=== PATIENT | female | born 1980 | race American Indian/Alaskan Native ===

== ENCOUNTER 2017-05-29 17:49 | Emergency (ER) | payer MEDICAID ==
[2017-05-29] MEDS ORDERED: GI Cocktail Oral Solution 30 ML PO ONE (19:58)
[2017-05-29 20:14] LABS: SODIUM,NA 141 mmol/L (135-145)
--- NOTE | 2017-05-29 20:14 | EDM.PDOC ---
ED HPI GENERAL MEDICAL PROBLEM - General Chief Complaint: Chest Pain Stated Complaint: CHEST PAINS, [id number] Left Lower Chest Pain Score (Numeric/FACES): 5 - Related Data Allergies Allergy/AdvReac Type Severity Reaction Status Date / Time No Known Allergies Allergy Verified 05/29/17 20:04 Home Meds: Home Meds . [No Known Home Meds] 05/29/17 [History] Past Medical History Gastrointestinal History: Reports: Gastritis, PUD Social & Family History - Tobacco Use Smoking Status *Q: Current Every Day Smoker Years of Tobacco use: 15 Packs/Tins Daily: 0.5 - Caffeine Use Caffeine Use: Reports: Coffee, Soda - Recreational Drug Use Recreational Drug Use: No Course - Vital Signs Last Recorded V/S: Last Vital Signs Temp 98.3 F 05/29/17 19:50 Pulse 65 05/29/17 19:50 Resp 22 H 05/29/17 19:50 BP 143/74 H 05/29/17 19:50 Pulse Ox 100 05/29/17 19:50 - Orders/Labs/Meds Orders: Active Orders 24 hr Category Date Time Status EKG 12 Lead [EKG Documentation Completion] [RC] STAT Care 05/29/17 18:56 Active CBC WITH AUTO DIFF [HEME] Stat Lab 05/29/17 19:25 Received Labs: Laboratory Tests 05/29/17 05/29/17 05/29/17 Range/Units 18:59 18:59 18:59 Sodium (135-145) mmol/L Potassium (3.6-5.0) mmol/L Chloride (101-111) mmol/L Carbon Dioxide (21.0-31.0) mmol/L Anion Gap BUN (7-18) mg/dL Creatinine (0.6-1.3) mg/dL Est Cr Clr Drug Dosing mL/min Estimated GFR (MDRD) BUN/Creatinine Ratio Glucose (74-105) mg/dL Calcium (8.4-10.2) mg/dl Total Bilirubin (0.2-1.0) mg/dL AST (10-42) IU/L ALT (10-60) IU/L Alkaline Phosphatase (42-121) IU/L Total Protein (6.7-8.2) g/dl Albumin (3.2-5.5) g/dl Globulin Albumin/Globulin Ratio Amylase (28-100) U/L Lipase (22-51) U/L Urine Color Red (YELLOW) Urine Appearance Turbid (CLEAR) Urine pH 7.0 (5.0-9.0) Ur Specific [place] 1.020 (1.005-1.030) Urine Protein 30 H (NEGATIVE) Urine Glucose (UA) Negative (NEGATIVE) Urine Ketones Negative (NEGATIVE) mg/dL Urine Occult Blood Large H (NEGATIVE) Urine Nitrite Negative (NEGATIVE) Urine Bilirubin Negative (NEGATIVE) Urine Urobilinogen 1.0 (0.2-1.0) mg/dL Ur Leukocyte Esterase Small H (NEGATIVE) Urine RBC >100 H /HPF Urine WBC 5-10 H (0-5/HPF) /HPF Ur Epithelial Cells Few /HPF Urine Bacteria Rare (0-FEW/HPF) /HPF Urine Mucus Rare /LPF Urine HCG, Qual Negative Urine Opiates Screen Negative (NEGATIVE) Ur Oxycodone Screen Negative (NEGATIVE) Urine Methadone Screen Negative (NEGATIVE) Ur Barbiturates Screen Negative (NEGATIVE) U Tricyclic Antidepress Negative (NEGATIVE) Ur Phencyclidine Scrn Negative (NEGATIVE) Ur Amphetamine Screen Negative (NEGATIVE) U Methamphetamines Scrn Negative (NEGATIVE) Urine MDMA Screen Negative (NEGATIVE) U Benzodiazepines Scrn Negative (NEGATIVE) Urine Cocaine Screen Negative (NEGATIVE) U Marijuana (THC) Screen Negative (NEGATIVE) Ethyl Alcohol mg/dL 05/29/17 Range/Units 19:25 Sodium 141 (135-145) mmol/L Potassium 4.3 (3.6-5.0) mmol/L Chloride 104 (101-111) mmol/L Carbon Dioxide 27.0 (21.0-31.0) mmol/L Anion Gap 14.3 BUN 12 (7-18) mg/dL Creatinine 0.7 (0.6-1.3) mg/dL Est Cr Clr Drug Dosing 92.79 mL/min Estimated GFR (MDRD) > 60 BUN/Creatinine Ratio 17.14 Glucose 99 (74-105) mg/dL Calcium 8.9 (8.4-10.2) mg/dl Total Bilirubin 0.8 (0.2-1.0) mg/dL AST 418 H (10-42) IU/L ALT 541 H (10-60) IU/L Alkaline Phosphatase 115 (42-121) IU/L Total Protein 6.6 L (6.7-8.2) g/dl Albumin 3.4 (3.2-5.5) g/dl Globulin 3.2 Albumin/Globulin Ratio 1.06 Amylase 68 (28-100) U/L Lipase 58 H (22-51) U/L Urine Color (YELLOW) Urine Appearance (CLEAR) Urine pH (5.0-9.0) Ur Specific [place] (1.005-1.030) Urine Protein (NEGATIVE) Urine Glucose (UA) (NEGATIVE) Urine Ketones (NEGATIVE) mg/dL Urine Occult Blood (NEGATIVE) Urine Nitrite (NEGATIVE) Urine Bilirubin (NEGATIVE) Urine Urobilinogen (0.2-1.0) mg/dL Ur Leukocyte Esterase (NEGATIVE) Urine RBC /HPF Urine WBC (0-5/HPF) /HPF Ur Epithelial Cells /HPF Urine Bacteria (0-FEW/HPF) /HPF Urine Mucus /LPF Urine HCG, Qual Urine Opiates Screen (NEGATIVE) Ur Oxycodone Screen (NEGATIVE) Urine Methadone Screen (NEGATIVE) Ur Barbiturates Screen (NEGATIVE) U Tricyclic Antidepress (NEGATIVE) Ur Phencyclidine Scrn (NEGATIVE) Ur Amphetamine Screen (NEGATIVE) U Methamphetamines Scrn (NEGATIVE) Urine MDMA Screen (NEGATIVE) U Benzodiazepines Scrn (NEGATIVE) Urine Cocaine Screen (NEGATIVE) U Marijuana (THC) Screen (NEGATIVE) Ethyl Alcohol < 5 mg/dL Meds: Medications Discontinued Medications Generic Name Dose Route Start Last Admin Trade Name Baronq PRN Reason Stop Dose Admin Al Hydroxide/Mg Hydroxide 30 ml 05/29/17 19:58 05/29/17 20:04 Gi Cocktail PO 05/29/17 19:59 30 ml ONETIME ONE Administration Famotidine Confirm 05/29/17 20:17 05/29/17 20:25 Pepcid Administered 05/29/17 20:18 Not Given Dose 20 mg .ROUTE .STK-MED ONE Famotidine 20 mg 05/29/17 20:23 05/29/17 20:26 Pepcid PO 05/29/17 20:24 20 mg ONETIME ONE Administration Departure - Departure Time of Disposition: 20:12 Disposition: Home, Self-Care 01 Condition: Good Clinical Impression: Epigastric pain - Discharge Information Instructions: Peptic Ulcer, [id number] Forms: ED Department Discharge Additional Instructions: bland diet limit caffeine and soda pepcid 20mg one daily' #10 no tylenol use follow up in clinic next week - My Orders Last 24 Hours: My Active Orders 05/29/17 19:25 CBC WITH AUTO DIFF [HEME] Stat - Assessment/Plan Last 24 Hours: My Active Orders 05/29/17 19:25 CBC WITH AUTO DIFF [HEME] Stat
[2017-05-29 20:15] LABS: CHLORIDE,CL 104 mmol/L (101-111)
[2017-05-29] MEDS ORDERED: Famotidine 20 MG Tab ONE (20:17)
[2017-05-29] MEDS ORDERED: Famotidine 20 MG Tab PO ONE (20:23)
--- NOTE | 2017-05-29 20:54 | EDM.PDOC ---
ED HPI GENERAL MEDICAL PROBLEM - General Chief Complaint: Chest Pain Stated Complaint: CHEST PAINS, [id number] Time Seen by Provider: 05/29/17 19:00 Source of Information: Reports: Patient History Limitations: Reports: No Limitations - History of Present Illness INITIAL COMMENTS - FREE TEXT/NARRATIVE: C/o of "chest pain" pointing epigastric LUQ pain since this am, similar to previous ulcer with radiation between shoulder blades.. Notes treated in [facility] approximately a year ago. Currently in CRU and no availability for prn medications. Admits prior meth and alcohol use hx. States now clean for 35 days. No prior episodes of pancreatitis. Has not tried anything for discomfort. Left Lower Chest Pain Score (Numeric/FACES): 5 - Related Data Allergies Allergy/AdvReac Type Severity Reaction Status Date / Time No Known Allergies Allergy Verified 05/29/17 20:04 Home Meds: Home Meds . [No Known Home Meds] 05/29/17 [History] Past Medical History Gastrointestinal History: Reports: Gastritis, PUD Social & Family History - Tobacco Use Smoking Status *Q: Current Every Day Smoker Years of Tobacco use: 15 Packs/Tins Daily: 0.5 - Caffeine Use Caffeine Use: Reports: Coffee, Soda - Recreational Drug Use Recreational Drug Use: No ED ROS GENERAL - Review of Systems Review Of Systems: See Below Constitutional: Reports: Decreased Appetite (today) HEENT: Reports: No Symptoms Respiratory: Reports: No Symptoms Cardiovascular: Reports: No Symptoms GI/Abdominal: Reports: Abdominal Pain, Decreased Appetite. Denies: Distension, Nausea, Vomiting : Reports: No Symptoms Musculoskeletal: Reports: No Symptoms Skin: Reports: No Symptoms Neurological: Reports: No Symptoms ED EXAM, GI/ABD - Physical Exam Exam: See Below Exam Limited By: No Limitations General Appearance: Alert, No Apparent Distress Ears: Normal External Exam Nose: Normal Inspection Throat/Mouth: Normal Inspection Head: Atraumatic, Normocephalic Neck: Normal Inspection Respiratory/Chest: No Respiratory Distress, Lungs Clear Cardiovascular: Normal Peripheral Pulses, Regular Rate, Rhythm GI/Abdominal Exam: Normal Bowel Sounds, Soft, Tender (mid epigastric light palpation, medial left upper quad with deep palpation, non tender RUQ. ). No: Distended, Guarding, Rebound Back Exam: Normal Inspection Extremities: Normal Inspection, Normal Range of Motion Neurological: Alert, Oriented, Normal Cognition Psychiatric: Normal Affect, Normal Mood Skin Exam: Warm, Dry, Intact, Normal Color, No Rash. No: Jaundice Course - Vital Signs Last Recorded V/S: Last Vital Signs Temp 98.0 F 05/29/17 20:59 Pulse 64 05/29/17 20:59 Resp 18 05/29/17 20:59 BP 160/95 H 05/29/17 20:59 Pulse Ox 98 05/29/17 20:59 - Orders/Labs/Meds Orders: Active Orders 24 hr Category Date Time Status EKG 12 Lead [EKG Documentation Completion] [RC] STAT Care 05/29/17 18:56 Active Labs: Laboratory Tests 05/29/17 05/29/17 05/29/17 Range/Units 18:59 18:59 18:59 WBC (5.0-10.0) 10^3/uL RBC (4.2-5.4) 10^6/uL Hgb (12.0-16.0) g/dL Hct (37.0-47.0) % MCV (80-100) fL MCH (27.0-34.0) pg MCHC (33.0-35.0) g/dL Plt Count (150-450) 10^3/uL Neut % (Auto) (42.2-75.2) % Lymph % (Auto) (20.5-50.1) % [place] % (Auto) (2-8) % Eos % (Auto) (1.0-3.0) % Baso % (Auto) (0.0-1.0) % Sodium (135-145) mmol/L Potassium (3.6-5.0) mmol/L Chloride (101-111) mmol/L Carbon Dioxide (21.0-31.0) mmol/L Anion Gap BUN (7-18) mg/dL Creatinine (0.6-1.3) mg/dL Est Cr Clr Drug Dosing mL/min Estimated GFR (MDRD) BUN/Creatinine Ratio Glucose (74-105) mg/dL Calcium (8.4-10.2) mg/dl Total Bilirubin (0.2-1.0) mg/dL AST (10-42) IU/L ALT (10-60) IU/L Alkaline Phosphatase (42-121) IU/L Total Protein (6.7-8.2) g/dl Albumin (3.2-5.5) g/dl Globulin Albumin/Globulin Ratio Amylase (28-100) U/L Lipase (22-51) U/L Urine Color Red (YELLOW) Urine Appearance Turbid (CLEAR) Urine pH 7.0 (5.0-9.0) Ur Specific [place] 1.020 (1.005-1.030) Urine Protein 30 H (NEGATIVE) Urine Glucose (UA) Negative (NEGATIVE) Urine Ketones Negative (NEGATIVE) mg/dL Urine Occult Blood Large H (NEGATIVE) Urine Nitrite Negative (NEGATIVE) Urine Bilirubin Negative (NEGATIVE) Urine Urobilinogen 1.0 (0.2-1.0) mg/dL Ur Leukocyte Esterase Small H (NEGATIVE) Urine RBC >100 H /HPF Urine WBC 5-10 H (0-5/HPF) /HPF Ur Epithelial Cells Few /HPF Urine Bacteria Rare (0-FEW/HPF) /HPF Urine Mucus Rare /LPF Urine HCG, Qual Negative Urine Opiates Screen Negative (NEGATIVE) Ur Oxycodone Screen Negative (NEGATIVE) Urine Methadone Screen Negative (NEGATIVE) Ur Barbiturates Screen Negative (NEGATIVE) U Tricyclic Antidepress Negative (NEGATIVE) Ur Phencyclidine Scrn Negative (NEGATIVE) Ur Amphetamine Screen Negative (NEGATIVE) U Methamphetamines Scrn Negative (NEGATIVE) Urine MDMA Screen Negative (NEGATIVE) U Benzodiazepines Scrn Negative (NEGATIVE) Urine Cocaine Screen Negative (NEGATIVE) U Marijuana (THC) Screen Negative (NEGATIVE) Ethyl Alcohol mg/dL 05/29/17 05/29/17 Range/Units 19:25 19:25 WBC 7.0 (5.0-10.0) 10^3/uL RBC 3.82 L (4.2-5.4) 10^6/uL Hgb 11.2 L (12.0-16.0) g/dL Hct 33.8 L (37.0-47.0) % MCV 88.5 (80-100) fL MCH 29.3 (27.0-34.0) pg MCHC 33.1 (33.0-35.0) g/dL Plt Count 296 (150-450) 10^3/uL Neut % (Auto) 38.3 L (42.2-75.2) % Lymph % (Auto) 38.7 (20.5-50.1) % [place] % (Auto) 12.9 H (2-8) % Eos % (Auto) 9.8 H (1.0-3.0) % Baso % (Auto) 0.3 (0.0-1.0) % Sodium 141 (135-145) mmol/L Potassium 4.3 (3.6-5.0) mmol/L Chloride 104 (101-111) mmol/L Carbon Dioxide 27.0 (21.0-31.0) mmol/L Anion Gap 14.3 BUN 12 (7-18) mg/dL Creatinine 0.7 (0.6-1.3) mg/dL Est Cr Clr Drug Dosing 92.79 mL/min Estimated GFR (MDRD) > 60 BUN/Creatinine Ratio 17.14 Glucose 99 (74-105) mg/dL Calcium 8.9 (8.4-10.2) mg/dl Total Bilirubin 0.8 (0.2-1.0) mg/dL AST 418 H (10-42) IU/L ALT 541 H (10-60) IU/L Alkaline Phosphatase 115 (42-121) IU/L Total Protein 6.6 L (6.7-8.2) g/dl Albumin 3.4 (3.2-5.5) g/dl Globulin 3.2 Albumin/Globulin Ratio 1.06 Amylase 68 (28-100) U/L Lipase 58 H (22-51) U/L Urine Color (YELLOW) Urine Appearance (CLEAR) Urine pH (5.0-9.0) Ur Specific [place] (1.005-1.030) Urine Protein (NEGATIVE) Urine Glucose (UA) (NEGATIVE) Urine Ketones (NEGATIVE) mg/dL Urine Occult Blood (NEGATIVE) Urine Nitrite (NEGATIVE) Urine Bilirubin (NEGATIVE) Urine Urobilinogen (0.2-1.0) mg/dL Ur Leukocyte Esterase (NEGATIVE) Urine RBC /HPF Urine WBC (0-5/HPF) /HPF Ur Epithelial Cells /HPF Urine Bacteria (0-FEW/HPF) /HPF Urine Mucus /LPF Urine HCG, Qual Urine Opiates Screen (NEGATIVE) Ur Oxycodone Screen (NEGATIVE) Urine Methadone Screen (NEGATIVE) Ur Barbiturates Screen (NEGATIVE) U Tricyclic Antidepress (NEGATIVE) Ur Phencyclidine Scrn (NEGATIVE) Ur Amphetamine Screen (NEGATIVE) U Methamphetamines Scrn (NEGATIVE) Urine MDMA Screen (NEGATIVE) U Benzodiazepines Scrn (NEGATIVE) Urine Cocaine Screen (NEGATIVE) U Marijuana (THC) Screen (NEGATIVE) Ethyl Alcohol < 5 mg/dL Meds: Medications Discontinued Medications Generic Name Dose Route Start Last Admin Trade Name Ev PRN Reason Stop Dose Admin Al Hydroxide/Mg Hydroxide 30 ml 05/29/17 19:58 05/29/17 20:04 Gi Cocktail PO 05/29/17 19:59 30 ml ONETIME ONE Administration Famotidine Confirm 05/29/17 20:17 05/29/17 20:25 Pepcid Administered 05/29/17 20:18 Not Given Dose 20 mg .ROUTE .STK-MED ONE Famotidine 20 mg 05/29/17 20:23 05/29/17 20:26 Pepcid PO 05/29/17 20:24 20 mg ONETIME ONE Administration - Re-Assessments/Exams Free Text/Narrative Re-Assessment/Exam: GI cocktail with improvement Slight increase in discomfort prior to discharge Pepcid administered. Patient to follow up with primary cre regarding elevation in LFT's. Bili wnl and no signs of jaundice present. Non tender RUQ. Departure - Departure Time of Disposition: 20:53 Disposition: Home, Self-Care 01 Condition: Fair Clinical Impression: Epigastric pain, Elevated liver enzymes, History of drug dependence/abuse - Discharge Information Instructions: Peptic Ulcer, [id number] Referrals: PCP,None [Primary Care Provider] - Forms: ED Department Discharge Additional Instructions: bland diet limit caffeine and soda pepcid 20mg one daily' #10 no tylenol use follow up in clinic regarding elevated liver function studies
[2017-05-29 21:00] VITALS: BP 160/95
--- NOTE | 2017-05-30 14:19 | EKG ---
05/29/2017 - DOMINIC LOPES I reviewed the EKG and agree with the machine's reading. [facility] /[id number]
== END 2017-05-29 21:02 | disposition home or self-care (01) ==
LOC: DL.ED 17:49
DX: R10.13 Epigastric pain (principal); R94.5 Abnormal results of liver function studies; F19.21 Other psychoactive substance dependence, in remission; F17.210 Nicotine dependence, cigarettes, uncomplicated
CPT/HCPCS: 36415; 80053; 80305; 81001; 81025; 82150; 83690; 85025; 93005; 99285; A9270; G0480